=== PATIENT | male | born 1980 | race Caucasian/White ===

== ENCOUNTER 2016-08-23 23:58 | Emergency (ER) | payer MEDICAID ==
--- NOTE | ~2016-08-23 | CR72 ---
[facility] A Service of [facility] & [facility] RADIOLOGY TEXT RESULTS PATIENT: JERONIMO WHITESIDE JR LOCATION: [facility] : 84 UNIT #: [id number] AGE: [address]: Moe Moffett MD SEX: M ORDER DR: [id number] [facility] [address] [place], [place] [address] [id number] MR#: [id number] Acc #: [id number] NAME: JERONIMO WHITESIDE JR : 1980 SEX: M STUDY DATE/TIME: 08/24/2016 0:03 UNIT: [facility] ROOM: STUDY DESCRIPTION: CR Chest Single View Portable Attending Physician: Moe Moffett M.D. Ordering Physician: Moe Moffett M.D. Primary Care Physician: Primary Care Physician No MEDICAL IMAGING REPORT This report is preliminary unless electronic signature is present EXAM AP portable chest 08/24/2016 HISTORY Chest pain and shortness of breath for 1 day. COMPARISON None. FINDINGS No acute airspace disease is appreciated. Patient is slightly rotated toward the left. Left nipple jewelry incidentally noted. No acute osseous abnormality or pleural effusion or pneumothorax. IMPRESSION No acute cardiopulmonary findings. Dictated by... Nida Blevins M.D. THIS IS AN ELECTRONICALLY VERIFIED REPORT Nida Blevins M.D. at 08/25/2016 10:01 PM MARCO/thang TD: 08/24/2016 06:38 JOB #: [id number] MEDICAL IMAGING REPORT Page 1 of 1 COPY
== END 2016-08-24 02:05 | disposition home or self-care (01) ==
LOC: CED 23:58
DX: J20.9 Acute bronchitis, unspecified (principal); J45.909 Unspecified asthma, uncomplicated; F17.200 Nicotine dependence, unspecified, uncomplicated
CPT/HCPCS: 71010; 94644; 96374; 99284; J2930